=== PATIENT | female | born 1950 | race Caucasian/White ===

== ENCOUNTER 2025-03-01 21:43 | Inpatient (IN) | payer OTHER, SELFPAY ==
[2025-03-01] VITALS (19 sets, daily range): BP systolic 77–116; BP diastolic 53–79; PULSE 2–95; BMI 32.6
--- NOTE | 2025-03-01 17:02 | ED.GENMED ---
History of Present Illness
General
Chief Complaint: Breathing Problem
Source: patient
Time Seen by Provider: 03/01/25 16:45
History of Present Illness
History of Present Illness:
74-year-old female brought to the emergency room by ambulance for evaluation of significant shortness of breath. Patient has been experiencing progressively significant shortness of breath over the past several days. Patient has a known history of
congestive heart failure. She was recently hospitalized at [facility] [place]. Patient tells me that while at [place] her kidney function tests were abnormal necessitating a change in her diuretic dose. After being discharged her extremity
swelling and weight had been increasing and so she was placed back on a diuretic. Despite this she continues to feel worse. The patient was going to go back to [place] but evidently was so short of breath and had a period of unresponsiveness
prompting her transfer to us as a closer hospital. Patient was placed on a nonrebreather by paramedics which did increase her pulse ox from a room air pulse ox of 77% up to 100%. She feels subjectively better. She denies any chest pain.
Past History
Past History
ED Past Medical History: Arrthythmia (Atrial fibrillation), Cancer (Breast cancer and uterine cancer), HTN, Hypercholesterolemia and NIDDM
ED Past Surgical History: Cardiac (Aortic valve replacement July 2014) and Gynecological (Left mastectomy, total abdominal hysterectomy)
Social History
Tobacco: Non-smoker
Alcohol: None
Drug: None
Living: with family
Family History
Family History: Negative Diabetes, Hypertension, Early CAD, Asthma or Cancer
Phy Exam
Physical Exam
Physical Exam:
General: Awake, Alert, Oriented X3. Acute respiratory distress with air hunger and increased work of breathing on arrival.
Vitals: Mildly hypotensive
Head: Atraumatic
Eyes: Pupils equal, EOMI
Throat: Airway intact, no exudates dry mucosa
Neck: Trachea midline
Lungs: Decreased breath sounds right lower half, crackles throughout
Heart: Regular rate, 2/6 murmurs
Abd: Soft, Nontender, No pulsatile mass
Neuro: Grossly nonfocal
Skin: Warm, dry, no rash
Extremities: pulses equal b/l, 3+ edema
Scores
Heart Failure Risk
Heart Failure Risk Score: Yes
History of Stroke or TIA: No
History of intubation for respiratory distress: No
Heart rate on ED arrival >/= 110: Yes
SaO2 <90% on arrival on room air: Yes
HR >/=110 during 3min walk test (or too ill to perform test): Yes
ECG has acute ischemic changes: No
Urea >/=12mmol/L (BUN 33.6mg/dL): Yes
Serum CO2>/=35mmol/L: No
Troponin I or T elevated to AL Level (0.4mg/dL): No
NT-proBNP >/=5,000ng/L (5,000pg/ml): Yes
HF Risk Score: 5
Admission Status: VERY HIGH RISK 39.8% Consider admission to hospital
Sepsis
Sepsis Screening
Sepsis Assessment: Sepsis Ruled Out
Sepsis Screen
Sepsis Screen: Sepsis Ruled Out
Date: 03/02/25
Time: 00:03
Course
Orders/Labs/Results
Orders:
Orders
03/01/25 16:42
Electrocardiogram (*1) Urgent
Reason for Study: Shortness of Breath
EKG- Treatment ONCE
CR Chest Portable - 1 View Stat
Comment:
Reason For Exam: SOB
Reason Study Needs to be Portable: Unable to Transport
03/01/25 16:49
Complete Blood Count/With Diff Urgent
Comprehensive Metabolic Panel Urgent
03/01/25 16:56
Furosemide [Lasix] 40 mg IV ONCE ONE
03/01/25 17:17
D-Dimer Urgent
Magnesium Urgent
NT-proBNP Urgent
Troponin I Urgent
03/01/25 18:16
Venous Blood Gas Urgent
%Oxygen/Room Air: 15L NRB
03/01/25 19:23
LDH Urgent
PT/INR [Prothrombin Time] Urgent
PTT Urgent
03/01/25 20:11
Electrocardiogram (*1) Urgent
Reason for Study: Chest Pain
EKG- Treatment ONCE
03/01/25 20:14
Troponin I Urgent
03/01/25 20:15
Nitroglycerin Sublingual [Nitrostat (Sublingual)] 0.4 mg SL NOW STA
03/01/25 20:19
Type And Crossmatch [Type+Screen] Urgent
03/01/25 21:28
Admit/Transfer Patient As Directed
Co-Sign Provider:
Level of Care: Inpatient admission
Assign to:: IMU- Intermediate Care
Physician / Group: Quirino
Diagnosis: Aortic Stenosis, CHF, Hypoxemic Resp Failure
Reason for Hospitalization: Aortic Stenosis, CHF, Hypoxemic Resp Failure
Expected length of stay greater than two midnights?: Yes
ELOS- Estimated Length of Stay in days: 4
I certify the patient meets the requirements for IP care: Yes
03/01/25 21:29
PRN Pain Medication Management As Directed
May give lesser potent ordered pain med per pt: Yes
preference::
Protocol:: Medication orders for pain may be administered in a
manner that supports deferring to patient preference
when the pt is:
- Requesting an ordered lesser potent pain medication.
Least to most potent pain medications are defined
as: acetaminophen < NSAID < tramadol < opioids
(morphine, oxycodone, hydromorphone).
- Requesting a lesser dose of the same medication IF
ORDERED.
- Requesting a less intrusive route of administration
if both routes are prescribed by the provider (PO <
IV).
04/22/25 21:30
Code Status As Directed
Resuscitation Status: Do not resuscitate
Reached after discussion with pt or family/Healthcare POA: Yes
DNR Bracelet Application ONCE
03/01/25 21:45
ABO2 Urgent
BBK Wristband Number:
Associate notified that ABO2 has been ordered: [id number]
Date: 03/01/25
Time: 20:32
[facility] ID: [id number]
03/01/25 22:00
Flush (0.9% Sodium Chloride) [Flush (Nss)] See Dose Instructions IV PER PROTOCOL
03/01/25 22:35
Acetaminophen [Tylenol] 650 mg PO Q4HPRN PRN
Atorvastatin [Lipitor] 20 mg PO HS
Dextrose 50%-Water [Dextrose 50% Syringe] 12.5 grams IV [id number] PRN
Glucagon [GlucaGen] 1 mg IM PRN PRN
Metoprolol Xl [Toprol Xl] 50 mg PO HS
Morphine Sulfate 2 mg IV Q4HPRN PRN
Nitroglycerin Sublingual [Nitrostat (Sublingual)] 0.4 mg SL [id number] PRN
03/01/25 22:35
CARDIOLOGY CONSULT Routine
Consulting Provider: Paulino Man
Was physician already notified: Yes
Reason for consult: Aortic Stenosis, CHF, Hypoxemic Resp Failure
Case Management Consult ONCE
Case Management Consult: Discharge Planning
Activity As Directed
Activity Level: Ambulate
With Assistance
Bedside Glucose Monitoring As Directed
Frequency: AC&HS
Additional Instructions:: Change to q6h if pt on TPN, tube feeding or not eating
EKG with chest pain [ECG as needed] As Directed
ECG as needed for:: Chest Pain
Dempsey Catheter [Catheter- Indwelling] As Directed
Reason for insertion: Acute Retention
Discontinue Date/Time: 03/04/25 0600
I/O [Intake/ Output] As Directed
Frequency: Per unit guidelines
Pneumatic Compression Sleeves As Directed
Type: Knee high
Records Request [Obtain Records] As Directed
Dates of Information to be Released: Most Recent
Type of Information Requested: Entire Record
ECG/Cardiology Results
Obtain Records from: Joel Santiago
Vital Signs As Directed
Frequency: Per unit guidelines
Weight As Directed
Frequency: Daily
Oxygen Therapy [O2 Therapy] [RESP] Routine
Titrate/Wean O2 to maintain O2 sat greater than (%): 94
DX Deep Vein Thrombosis Video Routine
03/01/25 23:34
TSH Reflex To Free T4 Routine
Troponin I Q6H
03/02/25 04:35
Troponin I Q6H
03/02/25 06:00
EKG [Electrocardiogram (*1)] IN AM
Reason for Study: Chest Pain
1800 calorie (15 carb) Diabetic
At Your Request: Full Participation
Fluid Restriction: 1440 mL/day (48 oz)
Basic Metabolic Panel IN AM
Complete Blood Count/No Diff IN AM
Glycohemoglobin (HgbA1c) IN AM
LFT [Yrdvz-Rhdh-Uajvpid] IN AM
03/02/25 07:30
Insulin Aspart Corrective Mod [Novolog Flexpen-Moderate Resistance] See Protocol SC AC
03/02/25 08:00
Furosemide [Lasix] 40 mg IV BID AT 0800,1600
Pantoprazole [Protonix IV] 40 mg IV DAILY
Potassium Chloride [KCl] 10 meq PO BID
03/02/25 10:35
Troponin I Q6H
03/02/25 18:00
insulin glargine [Lantus Solostar U-100 Insulin] 18 unit SC QPM
Abnormal Lab Results
03/01/25 03/01/25 03/01/25
16:49 17:17 18:16
WBC 3.8 L 10^3/uL
(4.8-10.8)
RBC 2.12 L 10^6/uL
(4.20-5.40)
Hgb 8.8 L g/dL
(12.0-16.0)
Hct 27.8 L %
(37.0-47.0)
MCV 131.1 H fL
(81.0-99.0)
MCH 41.5 H pg
(27.0-31.0)
MCHC 31.7 L g/dL
(33.0-37.0)
RDW 21.7 H %
(11.5-14.5)
Plt Count 31 L 10^3/uL
(130-400)
Absolute Lymphs (auto) 0.3 L 10^3/uL
(1.2-3.4)
Immature Gran % 0.8 H %
(0-0.5)
Neutrophils % 81.4 H %
(42.2-75.2)
Lymphocytes % 8.5 L %
(20.5-51.1)
PT
D-Dimer 3.72 H ug/mlFEU
(0.00-0.50)
VBG pCO2 51 H mmHg
(35-48)
VBG HCO3 33.9 H mmol/L
(22-27)
Chloride 88 L mmol/L
(98-107)
BUN 72 H mg/dl
(7-17)
Creatinine 2.1 H mg/dL
(0.6-1.0)
Glucose 326 H mg/dl
(70-99)
Magnesium 2.4 H mg/dl
(1.6-2.3)
Total Bilirubin 3.7 H mg/dl
(0.2-1.3)
AST 112 H U/L
(14-36)
ALT 80 H U/L
(0-35)
Lactate Dehydrogenase
Troponin I 0.207 H* ng/ml
Total Protein 5.7 L g/dl
(6.3-8.2)
03/01/25 03/01/25
19:23 20:14
WBC
RBC
Hgb
Hct
MCV
MCH
MCHC
RDW
Plt Count
Absolute Lymphs (auto)
Immature Gran %
Neutrophils %
Lymphocytes %
PT 19.6 H Sec
(11.4-14.6)
D-Dimer
VBG pCO2
VBG HCO3
Chloride
BUN
Creatinine
Glucose
Magnesium
Total Bilirubin
AST
ALT
Lactate Dehydrogenase 824 H U/L
(120-246)
Troponin I 0.201 H* ng/ml
Total Protein
03/01/25 16:49
03/01/25 16:49
Vital Signs
Initial and Last Documented VS:
Initial Vital Signs
Pulse Resp BP Pulse Ox
100 40 77/53 94
03/01/25 16:43 03/01/25 16:43 03/01/25 16:43 03/01/25 16:43
Last Documented Vital Signs
Temp Pulse Resp BP Pulse Ox
97.6 F 94 23 108/60 97
03/01/25 16:51 03/01/25 23:37 03/01/25 23:30 03/01/25 23:37 03/01/25 23:30
MDM/Problems Addressed
Differential Diagnosis Includes:
chf, pneumonia, symptomatic anemia, acs, nstemi
MDM/Problems Addressed:
74-year-old female presents to the emergency room with significant shortness of breath. She arrived on a nonrebreather. Medics report prehospital room air pulse ox in the 70s. She had improvement in her oxygenation with a nonrebreather. Patient
taken off the nonrebreather and placed on mid flow nasal cannula oxygen at 6 L. She did seem to maintain her oxygen saturation at least initially with this. EKG shows what appears to be atrial fibrillation with a right bundle branch block. There
are no acute ischemic changes on the EKG. Exam appears consistent with heart failure and a pleural effusion on the right. 40 mg of furosemide administered. Patient had hypotension on arrival but her blood pressure increased to a more normal range
shortly after arrival. Patient typically receives her care at [place] and therefore we do not have any recent records to refer to. She is moderately anemic with a hemoglobin of 8.8. Her platelet count is low at 31. Renal function is abnormal
with a BUN of 72 and a creatinine to 2.1. D-dimer was ordered initially and is quite elevated at 3.72 but given her renal function the test is nonspecific and the overall presentation seems much more consistent with heart failure than an embolic
event and therefore no further workup for this was pursued. A VBG was obtained which shows very mild CO2 retention with a normal pH. Troponin is elevated at 0.2. I suspect this is nonischemic elevation given her heart failure. Patient was having
episodes of hypoxia which seem to coincide with her respiratory rate slowing from the 30s to the 20s or teens. BiPAP applied which did alleviate the episodes of hypoxia. Patient wants to require hospitalization for diuresis, further management.
*Radiology
Radiology exam reviewed: preliminary read by ED provider (Moderate right pleural effusion, small left lower effusion, pulmonary edema)
*Pulse Oximetry
Patient hypoxic: yes
*EKG
Interpreted by ED Provider?: Yes
Interpretation: abnormal
Heart Rate: 94
Rate: normal
Rhythm: sinus
Interval: first degree heart block
QRS Pattern: right bundle branch block
Ischemia: non-specific ST changes
*Court Reporter Interpretation
Rate: normal
Rhythm: sinus
*Critical Care Note
Total Time (30-74mins, 75-104mins- exclusive of procedures): 45 min
comment:
Critical care statement: A total of 45 minutes of critical care time was provided for this patient. This includes management of unstable vital signs, evaluation of the patient at bedside, reviewing the patient's pertinent medical records, discussion
with consultants, review of old EKGs and review of pertinent medical records. This time with separate from time utilized to perform the aforementioned documented procedures
Patient Management
Discussion with other providers: Hospitalist
ED Attending Note
-
Portions of this chart may have been created with voice recognition software.� Occasional wrong word or��sound alike� substitutions may have occurred due to the inherent limitations of voice recognition software.
Discharge Plan
Departure
Patient Disposition: Admit
Date of Disposition: 03/01/25
Time of Disposition: 19:09
Admit to: ICU
Presentation/result/management discussed w/ accepting MD/DO: Hospitalist
Condition: Serious
Discharge Problem:
Hypoxic respiratory failure, CHF (congestive heart failure), Pleural effusion, bilateral
Interventions
Interventions:
*Risk Screen - Suicide Last Done: 03/01/25 16:48
*General Assessment Last Done: 03/01/25 16:48
*Neglect/Abuse Screening Last Done: 03/01/25 16:48
*ED- Fall Risk Assessment Last Done: 03/01/25 16:48
*ED COVID-19 Vaccine History Last Done: 03/01/25 16:48
*Nursing Disposition Last Done: 03/01/25 22:43
ED- Cardiac Assessment Last Done: 03/01/25 17:00
ED- Pulmonary Assessment Last Done: 03/01/25 17:00
Discharge Date and Time
Discharge Date/Time: 03/01/25 22:44
[2025-03-01 17:08] LABS: % Immature Granulocytes 0.8 % (0-0.5); % Lymphocytes 8.5 % (20.5-51.1); % Monocytes 9.3 % (1.7-9.3); % Neutrophils 81.4 % (42.2-75.2); Absolute Lymphocytes 0.3 10^3/uL (1.2-3.4); Absolute Monocytes 0.4 10^3/uL (0.1-0.6); Absolute Neutrophils 3.1 10^3/uL (1.4-6.5); Hematocrit 27.8 % (37.0-47.0); Hemoglobin 8.8 g/dL (12.0-16.0); Mean Corp Hgb Conc. 31.7 g/dL (33.0-37.0); Mean Corpuscular Hgb 41.5 pg (27.0-31.0); Mean Corpuscular Volume 131.1 fL (81.0-99.0); Nucleated Red Blood Cells % 6.4 %; Red Blood Cell Count 2.12 10^6/uL (4.20-5.40); Red Cell Dist. Width 21.7 % (11.5-14.5); White Blood Cell Count 3.8 10^3/uL (4.8-10.8)
[2025-03-01 17:09] LABS: AST (SGOT) 112 U/L (14-36); Albumin 3.8 g/dl (3.5-5.0); Alkaline Phosphatase 108 U/L (38-126); Blood Urea Nitrogen 72 mg/dl (7-17); Calcium 9.2 mg/dl (8.4-10.2); Carbon Dioxide 30 mmol/L (22-30); Chloride 88 mmol/L (98-107); Estimated Creatinine Clearance 27 ml/min; Glucose 326 mg/dl (70-99); Potassium 4.5 mmol/L (3.5-5.1); Sodium 136 mmol/L (135-145); Total Bilirubin 3.7 mg/dl (0.2-1.3); Total Protein 5.7 g/dl (6.3-8.2); eGFR 23.97
[2025-03-01] MEDS: LASIX 40 MG IV (17:13)
[2025-03-01 17:36] LABS: ALT (SGPT) 80 U/L (0-35)
[2025-03-01 17:37] LABS: D-Dimer 3.72 ug/mlFEU (0.00-0.50); Magnesium 2.4 mg/dl (1.6-2.3)
[2025-03-01 17:51] LABS: Platelet Count 31 10^3/uL (130-400)
[2025-03-01 17:51] LABS: NT-proBNP 20400 pg/ml; Troponin I 0.207 ng/ml
[2025-03-01 17:55] LABS: Anisocytosis 2+; Macrocytosis 3+; Normal RBC Morphology No; Ovalocytes 1+; Polychromasia 1+
[2025-03-01 18:20] LABS: Venous Blood Gas B.E. 8.5 mmol/L (-4 to +4); Venous Blood Gas HCO3 33.9 mmol/L (22-27); Venous Blood Gas O2 Sat % 73.8 %; Venous Blood Gas pCO2 51 mmHg (35-48); Venous Blood Gas pH 7.43 (7.32-7.43); Venous Blood Gas pO2 45 mmHg (30-50)
[2025-03-01 19:40] LABS: INR 1.63; PT 19.6 Sec (11.4-14.6)
[2025-03-01 19:41] LABS: APTT 29.9 Sec (23.4-35.0)
[2025-03-01 19:46] LABS: LDH 824 U/L (120-246)
[2025-03-01 20:52] LABS: Troponin I 0.201 ng/ml
--- NOTE | 2025-03-01 21:35 | HPS.HSE ---
Family Physician
-
Family Physician: Zhao Warner MD
Chief Complaint
-
Chest pain / SOB
History of Present Illness
Patient is a 74y F with PMH significant for severe , CHF and breast cancer who presents to ED complaining of chest pain and SOB. History obtained from patient and at the bedside. Patient is followed by Dr. Isidro at [place] for CHF /
valvular heart disease. She reports gradually worsening SOB, edema, etc since October. She was ultimately hospitalized at [place] December - January 2025 for further evaluation. She underwent diuresis and there were plans for L / R heart cath to
evaluate for possible AV repair / replacement. Patient initially states that she left the hospital so she would not miss an appointment for a wheelchair measurement/ fitting (?).
Patient was seen by her VN today and noted to be more SOB. 911 was called and patient was brought to ED for further evaluation and treatment.
Patient reportedly was hypoxemic on arrival with verbally reported SpO2 in the 70s. She was immediately placed on BiPAP here.
Patient has complained of intermittent chest discomfort during her stay in the ED.
Hospitalist service asked to admit patient for further evaluation and treatment.
Upon initial discussion with patient / family - they made clear that they would prefer to be at [facility] where her usual physicians are, with reported plans for valve intervention in progress.
Spoke with Hospitalist at [facility] regarding possible transfer and they were agreeable. However, they also reviewed recent admission and noted that patient was deemed poor candidate for heart cath / intervention. She had been seen by Palliative Care at
[facility] and was DNR / DNI by their record. There were no immediate plans for any invasive procedures.
Discussed this information again with patient / family.
After further discussion, patient / changed code status here to DNR and decided against arranged transfer as - again - no invasive procedures were actually planned.
Medical History
Past Medical History
Past Medical History: Reports Other
Additional Past Medical History:
Severe Aortic Stenosis
Chronic HF
Paroxysmal Atrial Fibrillation
Hypertension
DM-II
Breast Cancer on Oral Chemotherapy
Past Surgical History: Reports Other
Additional Past Surgical History:
Left Mastectomy
Bio AVR (2013)
Watchman Device
TERESA
Social History
Tobacco: Non-smoker
Alcohol: Occasional
Drug: None
Personal:
Living: With Family
Family History
Family History: Not pertinent
Allergies / Home Medications
Allergies reflects when Allergies were last updated in [employer].
Home Medications with original date entered in [employer]
Allergy/Medication List:
Allergies
Allergy/AdvReac Type Severity Reaction Status Date / Time
No Known Allergies Allergy Unverified 08/19/14 14:07
Home Medications
albuterol sulfate 90 mcg/actuation aerosol inhaler 2 puff inhalation Q6H PRN SOB 03/01/25
atorvastatin 20 mg tablet 20 mg PO HS 03/01/25
glipizide 5 mg tablet, extended release 24 hr 10 mg PO DAILY 03/01/25
insulin glargine 100 unit/mL (3 mL) subcutaneous pen (Lantus Solostar U-100 Insulin) 14 unit SC QPM 03/01/25
letrozole 2.5 mg tablet 2.5 mg PO DAILY 03/01/25
metoprolol succinate 50 mg tablet,extended release 24 hr 50 mg PO HS 03/01/25
palbociclib 125 mg tablet (Ibrance) 125 mg PO DAILY 03/01/25
potassium chloride 10 mEq capsule,extended release 10 meq PO BID 03/01/25
torsemide 20 mg tablet 60 mg PO BID 03/01/25
tramadol 50 mg tablet 50 mg PO Q6H PRN Pain 03/01/25
Review of Systems
-
History Source: Patient
A 12 point ROS was completed and negative except as noted: Yes
Constitutional: Reports Fatigue; Denies Fever or Chills
EENT: Denies Sore Throat
Respiratory: Reports Trouble Breathing; Denies Cough or Hemoptysis
Cardiac: Reports Chest Pain; Denies Diaphoresis or Palpitations
Abdomen/GI: Reports Black Stools; Denies Abdominal Pain, Nausea, Vomiting or Diarrhea
: Denies Dysuria, Frequency or Flank Pain
Musculoskeletal: Reports Edema
Neurological: Denies Dizzy or Headache
Psych: Reports Depression and Anxiety
Physical Exam
Vital Signs
Vital Signs
Temp Pulse Resp BP Pulse Ox
97.6 F 89 23 99/67 100
03/01/25 16:51 03/01/25 21:00 03/01/25 21:00 03/01/25 21:00 03/01/25 21:00
Physical Exam
General: Other (Pale 74y F in mild - moderate distress due to dyspnea and chest discomfort.)
HEENT: Moist mucous membranes and Other (Neck supple.)
Respiratory: Other (Decreased at bases - bibasilar rales about 1/3 up.)
Cardiac: S1/S2, Irregular Rhythm and Murmur (IV / AYE)
GI: Soft, Non Tender, Non Distended and Normal Bowel Sounds
Musculoskeletal: No Clubbing, No Cyanosis and Other (3+ pitting edema b/l LEs)
Neuro: AO x 3
Psych: Anxious
Laboratory Results
-
03/01/25 16:49
03/01/25 16:49
Laboratory Results
PT 19.6 Sec (11.4-14.6) H 03/01/25 19:23
INR 1.63 03/01/25 19:23
APTT 29.9 Sec (23.4-35.0) 03/01/25 19:23
Total Bilirubin 3.7 mg/dl (0.2-1.3) H 03/01/25 16:49
AST 112 U/L (14-36) H 03/01/25 16:49
ALT 80 U/L (0-35) H 03/01/25 16:49
Alkaline Phosphatase 108 U/L (38-126) 03/01/25 16:49
Troponin I 0.201 ng/ml H* 03/01/25 20:14
Impression/Plan
-
A/P: Patient is a 74y F with PMH significant for CHF, and DM-II who presents to ED complaining of chest pain and SOB.
Acute on Chronic HF - Unknown Type
Severe Aortic Stenosis
Acute Hypoxemic Respiratory Failure secondary to the above
Right > Left Pleural Effusions
- Admit for further evaluation and treatment.
- Reviewed with physician at [facility] and patient reportedly not a candidate for valve intervention, cath, etc.
- IV diuresis and follow for clinical improvement.
- Supplemental O2 +/- BiPAP if needed (weaned off in the ED).
- Cardiology evaluation for additional recommendations.
- Follow I/Os, daily weights, etc.
- Send for recent records, Echo, etc from [place].
NSTEMI
- Patient with chest pain and dyspnea on presentation.
- EKG with RBBB - no recent baseline here (last in 2013).
- Initial troponin elevated at 0.207.
- Unable to initiation heparin infusion given significant thrombocytopenia.
- Continue beta-colton, statin, etc. Add ASA.
- Follow troponin to peak.
Pancytopenia
- Patient with pancytopenia - apparently also appreciated during recent [facility] stay and attributed to Ibrance at that time.
- Elevated D-Dimer, LDH, bili, etc.
- ? hemolysis due to paravalvular leak?
- Hold Ibrance acutely.
- Follow for improvement in cell counts.
- Monitor for any gross evidence of bleeding.
Paroxysmal Atrial Fibrillation
- Stable. Rates < 100 bpm mostly.
- Continue metoprolol with holding parameters.
- Not on OAC - s/p Watchman device.
JOHSUA v CKD
- SCr = 2.1. Unclear recent baseline.
- Suspect Cardiorenal due to CHF.
- Follow for changes with IV Lasix / diuresis.
Urinary Retention
- After Lasix administration in the ED, patient failed to urinate and noted to have > 500cc of urine in the bladder.
- Dempsey placed. Maintained for now.
- Consider TOV prior to discharge.
Breast Cancer
- Patient s/p initial mastectomy, chemo and XRT.
- Was previously on Arimidex - but currently on maintenance chemo with Ibrance.
- Holding oral agents acutely given pancytopenia as noted above.
DM-II
- Uncontrolled. Hyperglycemia likely due to acute illness.
- Continue basal insulin and adjust dose for improved control.
- Hold oral hypoglycemic agents acutely.
- Follow glucose and cover with SSI as needed.
- Update A1C.
DVT Prophylaxis: SCDs
Code Status: DNR after further discussion with patient / family. Would likely benefit from Palliative Care discussions. CM consulted.
[2025-03-01] MEDS: TOPROL XL 50 MG PO (23:37)
[2025-03-01] MEDS: LIPITOR 20 MG PO (23:37)
[2025-03-01 23:48] LABS: Glucose - Point of Care 275 mg/dl (70-99)
[2025-03-01] MEDS: LANTUS 0.18 UNITS SC (23:52)
[2025-03-02] VITALS (35 sets, daily range): BP systolic 86–122; BP diastolic 41–87; BMI 31.8
[2025-03-02 00:04] LABS: Lactic Acid 3.6 mmol/L (0.7-2.0)
[2025-03-02 00:07] LABS: Iron 86 ug/dl (37-170)
[2025-03-02 00:11] LABS: Troponin I 0.225 ng/ml
[2025-03-02 00:16] LABS: Percent Saturation 24 % (20-50); Total Iron Binding Capacity 347 ug/dl (265-497)
--- NOTE | 2025-03-02 00:31 | PTCARENOTE ---
Received patient AAOx3, following commands. at bedside, questions answered. 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 Afib 90s, BP stable 100s/50s, normothermic. Trace anasarca b/l upper
extremities, +2 b/l lower extremities. Weak palpable pedal pulses. On 6 liters oxymask saturating 100%. Lung sounds diminished throughout, crackles in the bases. Abdomen soft, round, obese, hypoactive bowel sounds. Dempsey in place draining yellow
urine for acute retention. Bruising throughout extremities. Right PIV placed. Labs sent, CHG bath done, repositioned. Call rojo within reach.
[2025-03-02] MEDS: ATIVAN 0.5 MG PO (04:01)
[2025-03-02 04:14] LABS: TSH Reflex To Free T4 3.44 uIU/ml (0.47-4.68)
[2025-03-02 04:27] LABS: Hematocrit 24.7 % (37.0-47.0); Hemoglobin 8.2 g/dL (12.0-16.0); Mean Corp Hgb Conc. 33.2 g/dL (33.0-37.0); Mean Corpuscular Hgb 42.5 pg (27.0-31.0); Platelet Count 41 10^3/uL (130-400); Red Blood Cell Count 1.93 10^6/uL (4.20-5.40); Red Cell Dist. Width 21.2 % (11.5-14.5); White Blood Cell Count 3.7 10^3/uL (4.8-10.8)
[2025-03-02 04:44] LABS: Lactic Acid 3.9 mmol/L (0.7-2.0)
[2025-03-02 04:49] LABS: Folate > 20.0 ng/ml (2.76-20); Vitamin B12 > 1000 pg/ml (239-931)
[2025-03-02 07:44] LABS: ALT (SGPT) 107 U/L (0-35); AST (SGOT) 182 U/L (14-36); Albumin 3.2 g/dl (3.5-5.0); Alkaline Phosphatase 99 U/L (38-126); Blood Urea Nitrogen 81 mg/dl (7-17); Calcium 9.4 mg/dl (8.4-10.2); Carbon Dioxide 32 mmol/L (22-30); Chloride 90 mmol/L (98-107); Direct Bilirubin 2.7 mg/dl (0.0-0.4); Estimated Creatinine Clearance 28 ml/min; Glucose 199 mg/dl (70-99); Potassium 4.3 mmol/L (3.5-5.1); Sodium 136 mmol/L (135-145); Total Protein 5.3 g/dl (6.3-8.2); eGFR 25.41
[2025-03-02 07:53] LABS: Glucose - Point of Care 206 mg/dl (70-99)
--- NOTE | 2025-03-02 08:20 | PTCARENOTE ---
Assumed care of pt at 0715 following shift report. Pt asleep, drowsy but arousable to name. Oriented to person, month/year. Thought she was at the library. Reorients easily to situation, conversation more appropriate as pt more awake. Physical
assessment completed as documented. Repositioned and comfort care provided. Pt remains on Oxymask w/ POx 96%- POx drops into mid 80's when pt removes O2 and is on RA. Call rojo w/in pt reach. Bed exit alarm in use. Safe environment maintained.
--- NOTE | 2025-03-02 08:32 | CON.CAR ---
Addendum entered and electronically signed by Migel Ruiz MD 03/02/25 11:34:
I saw and examined the patient.
The RN [facility]'s note was reviewed and I agree with the note.
Comment: 74 y/o female with tissue AVR 2013, AFIB (not on OAC, watchman in place), hypertension, CHF (preserved EF), DM, HLD, and hx breast and uterine cancer. She was recently in [facility] (full details unknown- records being requested from
[place], by primary team- however per OP cardiology record she was in [place] for acute hypoxemic respiratory failure 2/2 CHF, also with JOSHUA, pancytopenia, elevated trops- determined not to be ideal candidate for TAVR). She is here for SOB with
associated chest pressure.
Bioprosthetic AVR is severely/critically stenotic mean gradient of 61 mmHg. She is frail.
- IV diuresis
Original Note:
Consultation
Consultation Request
Date/Time Consultation Requested: 03/01/252234
Date/Time Consultation Performed: 03/02/25 0832
Requesting Provider: Dr. Win
Performing Provider: Malathi HUSAIN for Dr. Ruiz
Reason for Consultation: , CHF, respiratory failure
Medical History
-
Chief Complaint: SOB
History of Present Illness:
74 y/o female with tissue AVR 2013, AFIB (not on OAC, watchman in place), hypertension, CHF (preserved EF), DM, HLD, and hx breast and uterine cancer. She was recently in [facility] (full details unknown- records being requested from
[place], by primary team- however per OP cardiology record she was in [place] for acute hypoxemic respiratory failure 2/2 CHF, also with JOSHUA, pancytopenia, elevated trops- determined not to be ideal candidate for TAVR). She is here for SOB with
associated chest pressure. She tells me she was in [place] for 2 weeks in January. After she went home, she has been progressively feeling worse with breathing. OP diuretics have been uptitrated, but that was not helpful. Per chart, there was
discussion between attending here and hospitalist at [place] and patient was not felt to be appropriate candidate for invasive procedures. Records are being requested by primary team. Per EMS report, pulse ox was in 70's on RA. She required BiPap.
She was given diuretic. She is on O2 by face mask at the time of my assessment and feeling improved. She is a cardiology patient of Dr. Isidro and I have requested and received records and will place in chart. Otherwise, she has noted LE edema and
weight gain. She tells me that when she got home from [place], she was 190 lbs. Currently 202 lbs. She has no chest discomfort at present.
Past Medical History
Past Medical History: Arrhythmias, Cancer, CHF, HTN, Hypercholesterolemia, NIDDM and Valvular Disease
Social History
Tobacco: Non-Smoker
Living: With Family
Family History
Family History: Reviewed & Not Pertinent
Allergies / Home Medications
Allergy/AdvReac Type Severity Reaction Status Date / Time
No Known Allergies Allergy Unverified 08/19/14 14:07
�Medication �Instructions �Recorded �Confirmed �Type
albuterol sulfate 90 mcg/actuation 2 puff inhalation Q6H PRN SOB 03/01/25 03/01/25 History
aerosol inhaler
atorvastatin 20 mg tablet 20 mg PO HS High Cholesterol 03/01/25 03/01/25 History
glipizide 5 mg tablet, extended 10 mg PO DAILY Diabetes 03/01/25 03/01/25 History
release 24 hr
insulin glargine 100 unit/mL (3 14 unit SC QPM Diabetes 03/01/25 03/01/25 History
mL) subcutaneous pen (Lantus
Solostar U-100 Insulin)
letrozole 2.5 mg tablet 2.5 mg PO DAILY Cancer 03/01/25 03/01/25 History
metoprolol succinate 50 mg 50 mg PO HS Heart Disease/Condition 03/01/25 03/01/25 History
tablet,extended release 24 hr
palbociclib 125 mg tablet (Vickie) 125 mg PO DAILY Cancer 03/01/25 03/01/25 History
potassium chloride 10 mEq 10 meq PO BID Supplement 03/01/25 03/01/25 History
capsule,extended release
torsemide 20 mg tablet 60 mg PO BID Fluid 03/01/25 03/01/25 History
Retention/Swelling
tramadol 50 mg tablet 50 mg PO Q6H PRN Pain 03/01/25 03/01/25 History
Review of Systems
-
History Source: Patient
All other systems: Negative unless noted
Respiratory: Trouble Breathing
Cardiac: Chest Pain
Musculoskeletal: Edema
Physical Exam
Vital Signs
Temp Pulse Resp BP Pulse Ox
96.6 F L 94 16 109/75 100
03/02/25 07:00 03/02/25 06:15 03/02/25 06:15 03/02/25 06:00 03/02/25 06:15
Lab Results
03/02/25 04:07
03/02/25 05:45
Troponin I 0.220 ng/ml H* 03/02/25 04:07
Xin-W-Txevdpcdlql Pept 68314 pg/ml 03/01/25 17:17
Physical Exam
General: Well Developed and No Apparent Distress
HEENT: Normocephalic and Anicteric
Respiratory: Crackles (b/l bases)
Cardiac: Irregular Rhythm, Murmur and Peripheral Edema
Musculoskeletal: Edema
Neuro: Awake, Alert and Oriented
Psych: Calm
Impression / Plan
-
Acute hypoxemia respiratory failure:
-this condition is threat to life
-currently on supplemental O2
-CHF management as below
Nvcxx-sh-xanarcs HFpEF:
-echo 01/09/25: normal EF, mild concentric LVH, moderate to severe MR, moderate TR, mild pulmonary hypertension, bio AVR peak and mean gradients 107/61 mmHg
-agree with IV diuresis, which requires intensive monitoring
AFIB, persistent:
-continue metoprolol, follow telemetry- rate is controlled
-watchman is in place per records, so not on OAC
Abnormal troponin:
-0.225 peak
-suspect acute, non-ischemic myocardial injury in setting of hypoxemia
Bio AVR:
-echo as noted with bio AVR peak and mean gradients 107/61 mmHg
-OP notes reviewed from Dr. Isidro and per his note 'currently very frail to evaluate with RHC/LHC with a view to valve in valve TAVR'
Pancytopenia:
-per primary
Renal dysfunction:
-unknown baseline, records being requested
-monitor with diuresis
RBBB:
-chronic per OP chart
Data Reviewed
-
EKG: Tracing Personally Visualized and interpreted (Probable AT with 2:1 conduction RBBB (vs AFIB))
Radiology: Report Reviewed by me (CXR: Small to moderate bilateral pleural effusions with associated atelectasis and/or pneumonia, right worse than left.)
Labs: Labs Reviewed by me
Old Records: Requested (Dr. Isidro)
--- NOTE | 2025-03-02 08:35 | W.PN.HOSP.TC ---
Today's Communication/Plan
-
Continue diuresis
Obtain records from [facility]
Monitor blood work
Follow-up troponin
Repeat echocardiogram
Wean of oxygen as possible
Maintain IMU level for today
Assessment / Plan
Assessment / Plan
Acute on Chronic HF - Unknown Type
Severe Aortic Stenosis
Acute Hypoxemic Respiratory Failure secondary to the above
Right > Left Pleural Effusions
- Admit for further evaluation and treatment.
- Reviewed with physician at [facility] and patient reportedly not a candidate for valve intervention, cath, etc.
- Elevated ProBNP 20k, CXR reviewed and no significant pulm edema,
- IV diuresis and follow for clinical improvement.
- will require repeat TTE
- Supplemental O2 +/- BiPAP if needed (weaned off in the ED).
- Cardiology evaluation for additional recommendations.
- Follow I/Os, daily weights, etc.
- Send for recent records, Echo, etc from [place].
Troponin elevation
r/o NSTEMI
- Patient with chest pain and dyspnea on presentation.
- EKG with RBBB - no recent baseline here (last in 2013).
- Initial troponin elevated at 0.207 > 0.201 > 0.225 > 0.22
- Unable to initiation heparin infusion given significant thrombocytopenia.
- Continue beta-colton, statin, etc. Add ASA.
- Follow troponin to peak.
Pancytopenia
Mixed hyperbilirubinemia
Elevated LDH/D-dimer
- Patient with pancytopenia - apparently also appreciated during recent [facility] stay and attributed to Ibrance at that time.
- Elevated D-Dimer, LDH, bili, etc. suggestive of intravascular hemolysis from sev AV stenosis vs potential side effect of Ibrance or mixed from bot this etiology.
- Hold Ibrance acutely.
- Will consider hematology evaluation once blood work from [facility] sent in and trends reviewed.
Paroxysmal Atrial Fibrillation
- Stable. Rates < 100 bpm mostly.
- Continue metoprolol with holding parameters.
- Not on OAC - s/p Watchman device.
JOSHUA v CKD
- SCr = 2.1. Unclear recent baseline.
- Suspect Cardiorenal due to CHF.
- Follow for changes with IV Lasix / diuresis.
Urinary Retention
- After Lasix administration in the ED, patient failed to urinate and noted to have > 500cc of urine in the bladder.
- Dempsey placed, monitor urine output.
- Consider TOV prior to discharge.
Breast Cancer
- Patient s/p initial mastectomy, chemo and XRT.
- Was previously on Arimidex - but currently on maintenance chemo with Ibrance.
- Holding oral agents acutely given pancytopenia as noted above.
DM-II
- Uncontrolled. Hyperglycemia likely due to acute illness.
- Continue basal insulin and adjust dose for improved control.
- Hold oral hypoglycemic agents acutely.
- Follow glucose and cover with SSI as needed.
- Update A1C.
DVT Prophylaxis: SCDs
Code Status: DNR after further discussion with patient / family. Would likely benefit from Palliative Care discussions. CM consulted.
Total time spent : 55 mins
case discussed with cardio CLINICAL APPEALS SPECIALIST
Anticipated Discharge: > 48 hours
Subjective/Interval History
-
Date of Service: March 02, 2025
Patient resting comfortably in bed
On oxygen through Ventimask
Denies of having any dyspnea
Not voicing any complaints
Objective Data
-
Labs:
Laboratory Results
03/02/25 03/02/25
04:07 05:45
WBC 3.7 L
Hgb 8.2 L
Hct 24.7 L
Plt Count 41 L D
Sodium Cancelled 136
Potassium Cancelled 4.3
Chloride Cancelled 90 L
Carbon Dioxide Cancelled 32 H
BUN Cancelled 81 H
Creatinine Cancelled 2.0 H
Glucose Cancelled 199 H
Calcium Cancelled 9.4
Total Bilirubin Cancelled 4.0 H
AST Cancelled 182 H
ALT Cancelled 107 H
Alkaline Phosphatase Cancelled 99
Vital Signs:
Vital Signs
Temp Pulse Resp BP Pulse Ox
96.6 F L 94 16 109/75 100
03/02/25 07:00 03/02/25 06:15 03/02/25 06:15 03/02/25 06:00 03/02/25 06:15
I&O
03/01/25 03/02/25 03/03/25
06:59 06:59 06:59
Output Total 875 / 875
Balance -875 / -875
Review of Systems
-
Respiratory: Denies Cough or Trouble Breathing
Cardiac: Reports No Symptoms
Abdomen/GI: Reports No Symptoms
Physical Exam
-
General: No Apparent Distress and Comfortable
HEENT: Oxygen
Respiratory: Crackles
Cardiac: Regular Rhythm, S1/S2 and Murmur (aortic regug murmur); Negative Rub
GI: Soft, Nontender and Nondistended
Musculoskeletal: Edema, Right Lower Extrem and Edema, Left Lower Extrem
Neuro: Awake, Alert, Oriented, No Motor Deficits and Nonfocal/Grossly Intact
Psych: Calm
[2025-03-02] MEDS: NSS (PRESERVATIVE FREE) 10 ML IV (09:07)
[2025-03-02] MEDS: LOW STRENGTH ASPIRIN 81 MG PO (09:07)
[2025-03-02] MEDS: KCL 10 MEQ PO ×2 (09:07→19:39)
[2025-03-02] MEDS: TYLENOL 650 MG PO (09:07)
[2025-03-02] MEDS: NOVOLOG FLEXPEN-MODERATE RESISTANCE 3 UNITS SC (09:08)
[2025-03-02] MEDS: PROTONIX IV 40 MG IV (09:08)
[2025-03-02] MEDS: LASIX 40 MG IV ×2 (09:08→16:39)
[2025-03-02 09:13] LABS: Glycohemoglobin (HgbA1c) 6.9 % (4.0-5.6)
[2025-03-02 11:40] LABS: LDH 963 U/L (120-246)
[2025-03-02 11:47] LABS: Glucose - Point of Care 166 mg/dl (70-99)
[2025-03-02] MEDS: NOVOLOG FLEXPEN-MODERATE RESISTANCE 1 UNITS SC ×2 (11:48→18:12)
--- NOTE | 2025-03-02 12:00 | PTCARENOTE ---
Pt continues to rest quietly. here to visit and encouraging pt to eat. Pt noted to have some difficulty w/ swallowing bread/roast beef that was ordered. Frequent harsh coughing noted after a few bites. Pox unchanged. No acute resp. distress
noted. TT to Dr Hall and order for Speech Therapy consult received. Pt tolerating thin liquids w/o difficulty. No additional changes from previous assessment findings.
--- NOTE | 2025-03-02 12:36 | CM ---
CM following re: discharge planning.
Reviewed pt's chart, met with pt and pt's at bedside.
Pt is a 74 year old female, admitted with primary dx of Acute on Chronic HF. PMH includes: severe , CHF and breast cancer.
Pt reports she lives with 2SH, 2 steps to enter, has 2 supportive children. Pt reports she ambulates with a walker and a cane, current with [facility]. No SNF history. Pt went to tears describing her health condition and she stated she does
not know what she will do when she is ready for discharge. Emotional support offered and provided.
PCP: Zhao butterfield
Pharmacy: [facility]
D/C plan: uncertain at this time and will depend on pt's progress.
CM will follow with discharge plan updates as hospitalization progresses
--- NOTE | 2025-03-02 15:40 | PTOTSP ---
Speech Language Pathology
Pt seen for clinical bedside swallow evaluation. Hoarse vocal quality noted, and pt had participated in outpatient voice therapy through [facility] September 2024-December 2024. Was not seen by [facility] during recent [facility] admission. Coughing episode
noted by RN with lunch this date. Pt stated she coughs/'chokes' frequently with solid food. P.O. trials of puree, regular solids, and thin liquids provided. No oral difficulties noted. Facial grimacing noted with all P.O. trials. Pt endorsed
pain L side of throat, which she stated she has had for some time. She also endorsed globus sensation with solids, which did not fully clear with liquid wash.
Recommend:
(1) Downgrade to IDDSI Level 4 (Puree) and Thin Liquids
(2) Aspiration precautions: sit upright, slow rate, single sips of liquids, alternate solids and liquids, effortful swallow
(3) Meds as tolerated
(4) Flexible Endoscopic Evaluation of Swallowing (FEES) 03/03 to further assess pharyngeal phase of swallow function, including airway protection
(5) [employer] to continue to follow
[2025-03-02] MEDS: ProAmatine 5 MG PO (16:39)
--- NOTE | 2025-03-02 16:50 | PTCARENOTE ---
Pt's gone home for part of afternoon, now returned to bedside. updated on diet modification recommended by Speech Therapy. TT to Dr Hall w/ update on pt's SBP in 's. Order for Midodrine received and administered per JAN. Pt
continues to rest quietly. O2 currently 4l/min via Oxymask- alternates w/ use of NC @ 4l/min. POx 96% at present. Comfort care/repositioning provided q2hr or more frequently
[2025-03-02 17:09] LABS: Glucose - Point of Care 161 mg/dl (70-99)
[2025-03-02] MEDS: LANTUS 0.18 UNITS SC (18:30)
--- NOTE | 2025-03-02 21:12 | PTCARENOTE ---
Pt received start of shift, HR afib w/ BBB. 4L NC. Pt very anxious, tachypneic and shallow breathing. Desat to 70s/80s. Oxymask placed back on pt, 4L. Deep breathing exercises. 96-100%. Dempsey draining yellow urine. Pt occasionally disoriented to
place/time. Call rojo within reach.
[2025-03-02] MEDS: LIPITOR 20 MG PO (23:09)
[2025-03-02 23:24] LABS: Glucose - Point of Care 180 mg/dl (70-99)
[2025-03-03] VITALS (55 sets, daily range): BP systolic 51–111; BP diastolic 21–94; PULSE 2–115; BMI 32.0
--- NOTE | 2025-03-03 01:38 | PTCARENOTE ---
Pt intermittently extremely anxious, tachypneic. SpO2 remains 96% and up during these episodes with 4L oxymask. Therapeutic speech utilized and effectively resolved these episodes. Dempsey continuing to drain yellow urine. No further change in
assessment.
[2025-03-03 04:56] LABS: Blood Urea Nitrogen 99 mg/dl (7-17); Calcium 9.1 mg/dl (8.4-10.2); Carbon Dioxide 30 mmol/L (22-30); Chloride 91 mmol/L (98-107); Estimated Creatinine Clearance 24 ml/min; Glucose 115 mg/dl (70-99); Potassium 5.3 mmol/L (3.5-5.1); Sodium 136 mmol/L (135-145); eGFR 21.49
[2025-03-03 05:04] LABS: Hematocrit 25.7 % (37.0-47.0); Hemoglobin 8.4 g/dL (12.0-16.0); Mean Corp Hgb Conc. 32.7 g/dL (33.0-37.0); Mean Corpuscular Hgb 40.6 pg (27.0-31.0); Mean Corpuscular Volume 124.2 fL (81.0-99.0); Platelet Count 24 10^3/uL (130-400); Red Blood Cell Count 2.07 10^6/uL (4.20-5.40)
[2025-03-03] MEDS: MORPHINE SULFATE 2 MG IV ×2 (05:16→11:13)
--- NOTE | 2025-03-03 07:15 | PTCARENOTE ---
Patient confused and pulling off oxygen. Pulse ox down to 76%. Tachypneic. 3L Oxymask reapplied. Hypotensive. BP 80/53. HR 100-110's, Afib. Per trade specialist RN, EKG changes observed on tele monitor. EKG obtained. Hospitalist notified.
[2025-03-03 07:36] LABS: Glucose - Point of Care 67 mg/dl (70-99)
[2025-03-03] MEDS: NOVOLOG FLEXPEN-MODERATE RESISTANCE SC ×2 (07:36→11:29)
[2025-03-03] MEDS: DEXTROSE 50% SYRINGE 12.5 GRAMS IV ×2 (07:41→10:14)
--- NOTE | 2025-03-03 07:48 | PTCARENOTE ---
Patient's blood sugar 67. 1/2 amp D50 administered as ordered.
[2025-03-03 08:06] LABS: Glucose - Point of Care 137 mg/dl (70-99)
[2025-03-03] MEDS: PROTONIX IV 40 MG IV (08:11)
[2025-03-03] MEDS: NSS (PRESERVATIVE FREE) 10 ML IV (08:11)
[2025-03-03] MEDS: KCL PO (08:17)
--- NOTE | 2025-03-03 08:22 | W.PN.CD ---
Addendum entered and electronically signed by Migel Ruiz MD 03/03/25 10:47:
Patient hypotensive increased oxygen requirement; started on levophed, worsening lactic acidosis; went to bedside and discussed with hris manager patient made comfort care given overall critical illness with poor chance of recovery
Original Note:
Today's Communication / Plan
-
increase lasix to 80mg IV bid
trend Cr, tele
Impression / Plan
-
Acute hypoxemia respiratory failure:
-this condition is threat to life
-with pleural effusions and acute HF
Pfhin-iq-osvxmtv HFpEF: severe, requiring hospitalization and close monitoring of labs, tele
-echo 01/09/25: normal EF, mild concentric LVH, moderate to severe MR, moderate TR, mild pulmonary hypertension, bio AVR peak and mean gradients 107/61 mmHg (severe stenosis of bioprosthetic valve)
-high risk situation with possible cardiorenal syndrome, to consider RHC if CR worsens and in line with goals of care
-increase lasix to 80mg IV bid
AFIB, persistent:
-metoprolol on hold for hypotension
-watchman is in place per records, so not on OAC
Abnormal troponin:
-0.225 peak
- acute, non-ischemic myocardial injury in setting of HF
Bio AVR: severe stenosis of bioprosthetic valve
-echo as noted with bio AVR peak and mean gradients 107/61 mmHg
-OP notes reviewed from Dr. Isidro and per his note 'currently very frail to evaluate with RHC/LHC with a view to valve in valve TAVR'
Moderate/severe MR
-diuresis
Pancytopenia:
-per primary
-attributed to Ibrance previously
Renal dysfunction:
-unknown baseline, records being requested
-monitor with diuresis
RBBB:
-chronic per OP chart
Physical Exam
Vital Signs/Labs
Vital Signs
Temp Pulse Resp BP Pulse Ox
97.5 F 103 34 91/73 97
03/03/25 04:00 03/03/25 08:15 03/03/25 08:15 03/03/25 08:15 03/03/25 08:15
03/02/25 03/03/25 03/04/25
06:59 06:59 06:59
Actual Weight 91.943 kg 92.59 kg
03/03/25 04:04
03/03/25 04:04
PT 19.6 Sec (11.4-14.6) H 03/01/25 19:23
INR 1.63 03/01/25 19:23
APTT 29.9 Sec (23.4-35.0) 03/01/25 19:23
Magnesium 2.4 mg/dl (1.6-2.3) H 03/01/25 17:17
03/01/25
17:17
Njt-B-Chfxumspyxu Pept
LAB Results
03/01/25 03/01/25 03/01/25
17:17 20:14 23:34
Troponin I 0.207 H* 0.201 H* 0.225 H*
03/02/25 03/02/25
04:07 10:35
Troponin I 0.220 H* Cancelled
Physical Exam
Cardiovascular: Rhythm/rate is irregular, Pedal edema present, JVD present and Systolic murmur present
Respiratory: Labored respirations and Crackles Present
Neuro/Psych: Oriented
Data Reviewed
-
Date of Service: March 03, 2025
EKG: Other (tele: Afib 80s)
Labs: Labs Reviewed by me
Old Records: Reviewed
[2025-03-03] MEDS: LASIX IV (08:29)
[2025-03-03 08:55] LABS: Glucose - Point of Care 92 mg/dl (70-99)
[2025-03-03] MEDS: LOW STRENGTH ASPIRIN PO (09:11)
[2025-03-03 09:29] LABS: Venous Blood Gas O2 Sat % 89.5 %; Venous Blood Gas pCO2 57 mmHg (35-48); Venous Blood Gas pO2 61 mmHg (30-50)
[2025-03-03] MEDS: LEVOPHED 250 IV (09:44)
[2025-03-03 10:03] LABS: Glucose - Point of Care 72 mg/dl (70-99)
[2025-03-03 10:05] LABS: Troponin I 0.408 ng/ml
[2025-03-03 10:23] LABS: Lactic Acid 8.3 mmol/L (0.7-2.0)
--- NOTE | 2025-03-03 10:30 | PTCARENOTE ---
Around 0845, patient minimally responsive. Pale. Skin cool and clammy. Lung sounds crackles throughout left lung, diminished throughout right lung. Tachypneic; RR in the 30's. Pulse ox 95-96% on 3L Oxymask. Blood pressure down to 60-70/40-50's. HR
100's, afib with BBB. HOB lowered. Hospitalist notified. Textile Stylist notified and at bedside. VBG, Troponin and Lactic sent. Patient placed on BiPAP 10/5 4L by RT. Levophed gtt initiated at 0937. Titrated up to 14 mcg/min for MAP >65. Repeat blood
sugar 72. Additional 1/2 amp D50 administered. at bedside. Emotional support provided. Troponin level- 0.408, Lactic level- 8.3. Textile Stylist notified.
--- NOTE | 2025-03-03 10:41 | PTCARENOTE ---
Patient transitioned to comfort care.
--- NOTE | 2025-03-03 11:01 | CON.INTV ---
Consultation
Consultation Request
Date/Time Consultation Requested: 03/03/2025
Date/Time Consultation Performed: 03/03/2025
Requesting Provider: Rex Potter
Performing Provider: Dalton Feliciano
Reason for Consultation: Shock, respiratory distress
Medical History
-
Chief Complaint: Hypotension, shortness of breath
History of Present Illness:
Patient is a 74-year-old female with known history of stenotic bioprosthetic valve with severe/critical aortic stenosis, congestive heart failure, history of breast cancer who presented to [facility] emergency room with chest pain and shortness of
breath. Patient had a recent admission at [facility] for CHF exacerbation which was managed with diuresis with plan for outpatient follow-up. Patient developed worsening shortness of breath again and presented to emergency room here and was admitted
to the hospitalist service. Cardiology service evaluated the patient and patient was kept on diuresis. She initially required BiPAP on admission which was subsequently weaned off to nasal cannula.
This morning, patient was noted to be hypotensive with increasing work of breathing. In view of developing shock and respiratory failure, infectious disease physician service was consulted for further input. Patient was examined emergently right away and was noted
to be an extremis with respiratory rate around 40 as well as hypotension.
Past Medical History
Past Medical History: Reports Other
Additional Past Medical History:
Severe Aortic Stenosis
Chronic HF
Paroxysmal Atrial Fibrillation
Hypertension
DM-II
Breast Cancer on Oral Chemotherapy
Past Surgical History: Reports Other
Additional Past Surgical History:
Left Mastectomy
Bio AVR (2013)
Watchman Device
TERESA
Social History
Tobacco: Non-smoker
Alcohol: Occasional
Drug: None
Personal:
Living: With Family
Family History
Family History: Not pertinent
Allergies / Home Medications
Allergies / Home Medications
Allergies
Allergy/AdvReac Type Severity Reaction Status Date / Time
No Known Allergies Allergy Unverified 10/10/14 14:07
Home Medications
�Medication �Instructions �Recorded �Confirmed �Last Taken �Type
albuterol sulfate 90 mcg/actuation 2 puff inhalation Q6H PRN SOB 03/01/25 03/01/25 Unknown History
aerosol inhaler
atorvastatin 20 mg tablet 20 mg PO HS High Cholesterol 03/01/25 03/01/25 Unknown History
glipizide 5 mg tablet, extended 10 mg PO DAILY Diabetes 03/01/25 03/01/25 Unknown History
release 24 hr
insulin glargine 100 unit/mL (3 14 unit SC QPM Diabetes 03/01/25 03/01/25 Unknown History
mL) subcutaneous pen (Lantus
Solostar U-100 Insulin)
letrozole 2.5 mg tablet 2.5 mg PO DAILY Cancer 03/01/25 03/01/25 Unknown History
metoprolol succinate 50 mg 50 mg PO HS Heart Disease/Condition 03/01/25 03/01/25 Unknown History
tablet,extended release 24 hr
palbociclib 125 mg tablet (Ibrance) 125 mg PO DAILY Cancer 03/01/25 03/01/25 Unknown History
potassium chloride 10 mEq 10 meq PO BID Supplement 03/01/25 03/01/25 Unknown History
capsule,extended release
torsemide 20 mg tablet 60 mg PO BID Fluid 03/01/25 03/01/25 Unknown History
Retention/Swelling
tramadol 50 mg tablet 50 mg PO Q6H PRN Pain 03/01/25 03/01/25 Unknown History
Review of Systems
-
Unable to Obtain full review of systems at this time due to: Other (Patient in respiratory distress with increased work of breathing, unable to participate in review of system. Patient reported chest pressure however during my evaluation.)
Vitals / Labs / Diagnostic Testing
Vital Signs
Temp Pulse Resp BP Pulse Ox
98.5 F 113 22 103/76 96
03/03/25 08:00 03/03/25 10:40 03/03/25 10:40 03/03/25 10:40 03/03/25 10:10
Lab Data
03/03/25 04:04
03/03/25 04:04
Diagnostic Testing:
Physical Exam
-
HEENT: Normocephalic
Cardiovascular: Other (Loud pansystolic murmur)
Respiratory: Rales, Rhonchi and Accessory Resp Muscle Use
GI: Soft
Neurology: Awake
Skin: Other (Skin is cold, clammy, distal toes of feet appear cyanotic)
General: Respiratory Distress
Assessment
-
#1. Acute respiratory distress with hypoxic respiratory failure. Patient was emergently evaluated at bedside in view of hypotension and respiratory distress. This is in the setting of pulmonary edema, hypotension with cardiogenic shock with
critical aortic stenosis.
- Patient noted to be breathing at a respiratory rate of about 40, in extremis during my evaluation. Confirmed CODE STATUS of DNR/DNI with at bedside
- Started patient on BiPAP stat with improved work of breathing
- Chest x-ray suggestive of pulmonary edema and pleural effusion consistent with underlying cardiogenic shock
#2. Cardiogenic shock with critical aortic stenosis. Patient was started on Levophed, quickly went up to Levophed @ 14 to maintain MAP above 65
- Patient has known history of stenotic bioprosthetic aortic valve and has had recent hospitalization at [facility]. Reportedly patient is not a candidate for surgical interventions. I discussed with the cardiology team locally as well.
#3. Worsening lactic acidosis.
- Stat VBG showed a pH of 7.3, lactate noted to be above 8 compared to a lactate of 3 from 2 days ago.
- I met with patient's at bedside again and we went over the unfortunate situation of worsening respiratory failure and worsening shock with increasing acidosis. We briefly talked about intubation and mechanical ventilation versus DNR/DNI
with ongoing medical management versus more comfort focused care. Patient's iterated that he had been told at [facility] also that patient is unlikely to be a candidate for additional surgical interventions and comfort focused care might not
be unreasonable.
- Patient at this point is unable to participate in these discussions in view of respiratory failure, shock and worsening acidosis with encephalopathy.
- After discussion with patient's spouse at bedside, patient was transitioned to comfort focused care. Will add morphine as needed for air hunger as patient had significant respiratory distress prior to being placed on BiPAP therapy.
Critical Care time 69 mins -- The patient is admitted for acute critical illness for the treatment of vital organ failure and/or prevention of further life-threatening conditions. Total care includes time spent in review of history, physical exam,
medications, hemodynamic/ventilator parameters, laboratory data, imaging and discussion with house staff, pharmacy, respiratory therapy, middle school guidance counselor, and nursing.
--- NOTE | 2025-03-03 11:09 | W.PN.PAL2 ---
Today's Communication
-
Arrived for palliative care visit. informed by RN that family have opted for comfort care. please cancel palliative care consult as goals clear. reconsult if needed in the future.
Objective Data
-
Objective Data:
Vital Signs
Temp Pulse Resp BP Pulse Ox
98.5 F 115 40 72/51 95
03/03/25 08:00 03/03/25 11:03 03/03/25 11:03 03/03/25 11:03 03/03/25 11:00
Laboratory Results
03/03/25 04:04
03/03/25 04:04
PT 19.6 Sec (11.4-14.6) H 03/01/25 19:23
INR 1.63 03/01/25 19:23
APTT 29.9 Sec (23.4-35.0) 03/01/25 19:23
Hemoglobin A1c 6.9 % (4.0-5.6) H 03/02/25 04:07
Total Protein 5.3 g/dl (6.3-8.2) L 03/02/25 05:45
Albumin 3.2 g/dl (3.5-5.0) L 03/02/25 05:45
Palliative Performance Scale
Palliative Performance Scale:
PPS Level Ambulation Activity & Evidence of Disease Self Care Intake Conscious Level
100% Full Normal Activity & Work; Full Intake Full
No Evidence of Disease
90% Full Normal Activity & Work; Full Normal Full
Some Evidence of Disease
80% Full Normal Activity with Effort Full Normal or Full
Some Evidence of Disease Reduced
70% Reduced Unable Normal Job/Work Full Normal or Full
Significant Disease Reduced
60% Reduced Unable Hobby/Housework Occasional Normal or Full or Confusion
Significant Disease Assistance Reduced
50% Mainly Sit/Lie Unable to do Any Work Considerable Normal or Full or Confusion
Extensive Disease Assistance Req'd Reduced
40% Mainly in Bed Unable to do Most Activity Mainly Assistance Normal or Full or Drowsy;
Extensive Disease Reduced +/- Confusion
30% Totally Bed Unable to do Any Activity Total Care Normal or Full or Drowsy;
Bound Extensive Disease Reduced +/- Confusion
20% Totally Bed Bound Unable to do Any Activity Total Care Minimal to Full or Drowsy;
Extensive Disease Sips +/- Confusion
10% Totally Bed Bound Unable to do Any Activity Total Care Mouth Care Drowsy or Coma;
Extensive Disease Only +/- Confusion
0%
PPS Score Level:
--- NOTE | 2025-03-03 11:19 | PTCARENOTE ---
BiPAP and Levophed discontinued. Morphine administered for dyspnea. Repositioned for comfort.
--- NOTE | 2025-03-03 12:25 | W.PN.DEATH ---
Pronouncement of
-
Called to see patient to pronounce.
No spontaneous heart tones or respirations noted.
Patient not responsive to verbal stimuli.
Patient is pronounced .
Time of : 11:46
Date of : 03/03/25
Cause of : Acute hypoxic respiratory failure
Family Notified: Yes
--- NOTE | 2025-03-03 12:48 | W.DCSUMMARY ---
Discharge Summary
Discharge Data
Date of Admission: 03/01/25
Date of Discharge: 03/03/25
-
Pending Results: No
Hospital Course
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
breath.
Patient was hypotensive during hospitalization and increased work of breathing, discussed with at bedside, patient is DNI/DNR.
Consulted ICU for pressors, also palliative team.
After discussion with ICU patient converted to comfort measures only.
Patient pronounced on 11:45 AM
Discharge Plan
-
Patient Disposition:
Date/Time
Date/Time: 03/03/25 11:46
Discharge Date and Time
Print Language: [place]
--- NOTE | 2025-03-03 13:35 | PTCARENOTE ---
Patient belongings sent with . Postmortem care performed. GOL notified.
--- NOTE | 2025-03-03 13:59 | CM ---
Pt today. at bedside.
Emotional support offered and provided.
--- NOTE | 2025-03-04 08:33 | PN.CDI ---
CDI
- -
CDI:
Physician Documentation Request
Admit Date: 03/01/25 21:43
Dear Doctor Rafael,
Please review the following and provide your response in the progress notes.
Clinical Indicators:
Pt admitted with Acte on Chronic HFpEF/Acute Hypoxic Respiratory Failure /Severe Aortic Stenosis
Otorhinolaryngologist consult, ' - Patient at this point is unable to participate in these discussions in view of respiratory failure, shock and worsening acidosis with encephalopathy.'
Pt care note 03/02 @ 2112,' Pt very anxious, tachypneic and shallow breathing. Desat to 70s/80s. Oxymask placed back on pt, 4L. Deep breathing exercises. 96-100%.... Pt occasionally disoriented to place/time....'
Pt care note 03/03 @0715,' Patient confused and pulling off oxygen. Pulse ox down to 76%. Tachypneic....'
Pt care note 03/03 @ 1030,' Around 0845, patient minimally responsive. Pale. Skin cool and clammy. Lung sounds crackles throughout left lung...'
Based on the above, could you clarify in the Progress Notes and Discharge Summary which, if any of the following, is the most likely etiology of the confusion/altered mental status/Type of Encephalopathy:
Metabolic Encephalopathy
Toxic metabolic Encephalopathy
Other ( please specify)
Use of terms such as suspected, likely, concern for, or probable (associated with a specific diagnosis that is being evaluated, monitored, or treated as if it exists) are acceptable and can be coded in the inpatient setting, when documented at the
time of discharge.
Thank you,
Kaye Iglesias RN
CDI Specialist
[place] [facility]
Please use your independent medical judgment in providing your response.
--- NOTE | 2025-03-04 08:42 | PN.CDI ---
CDI
- -
CDI:
Physician Documentation Request
Admit Date: 03/01/25 21:43
Dear Doctor Rafael,
Please review the following and provide your response in the progress notes.
Clinical Indicators:
Pt admitted with Acte on Chronic HFpEF/Acute Hypoxic Respiratory Failure /Severe Aortic Stenosis
There is potentially conflicting documentation regarding the type of atrial fibrillation.
Documented per H&P and progress note 03/02, ,' Paroxysmal Atrial Fibrillation Stable. Rates < 100 bpm mostly. Continue metoprolol with holding parameters.Not on OAC - s/p Watchman device.'
Cardiology consult and progress note 03/03,' AFIB, persistent:metoprolol on hold for hypotension watchman is in place per records, so not on OAC...'
If possible, please provide further specificity regarding atrial fibrillation, such as:
Persistent atrial fibrillation - episodes of continuous AF that last more than 7 days and do not self-terminate
Paroxysmal atrial fibrillation - terminates spontaneously or with intervention within 7 days of onset ( no change in documentation)
Other - please specify
Use of terms such as suspected, likely, concern for, or probable (associated with a specific diagnosis that is being evaluated, monitored, or treated as if it exists) are acceptable and can be coded in the inpatient setting, when documented at the
time of discharge.
Thank you,
Kaye Iglesias RN
CDI Specialist
[place] [facility]
Please use your independent medical judgment in providing your response.
--- NOTE | 2025-03-07 12:47 | PN.CDI ---
CDI
- -
CDI:
Physician Documentation Request
Admit Date: 03/01/25 21:43
Dear Doctor ,
Please review the following and provide your response in the progress notes.
Clinical Indicators:
Pt admitted with Acte on Chronic HFpEF/Acute Hypoxic Respiratory Failure /Severe Aortic Stenosis
[facility] Breaker consult, ' - Patient at this point is unable to participate in these discussions in view of respiratory failure, shock and worsening acidosis with encephalopathy.'
Pt care note 03/02 @ 2,' Pt very anxious, tachypneic and shallow breathing. Desat to 70s/80s. Oxymask placed back on pt, 4L. Deep breathing exercises. 96-100%.... Pt occasionally disoriented to place/time....'
Pt care note 03/03 @0715,' Patient confused and pulling off oxygen. Pulse ox down to 76%. Tachypneic....'
Pt care note 03/03 @ 1030,' Around 0845, patient minimally responsive. Pale. Skin cool and clammy. Lung sounds crackles throughout left lung...'
Based on the above, could you clarify in the Progress Notes and Discharge Summary which, if any of the following, is the most likely etiology of the confusion/altered mental status/Type of Encephalopathy:
Metabolic Encephalopathy
Toxic metabolic Encephalopathy
Other ( please specify)
Use of terms such as suspected, likely, concern for, or probable (associated with a specific diagnosis that is being evaluated, monitored, or treated as if it exists) are acceptable and can be coded in the inpatient setting, when documented at the
time of discharge.
Thank you,
Kaye Iglesias RN
CDI Specialist
[place] [facility]
Please use your independent medical judgment in providing your response.
--- NOTE | 2025-03-08 16:42 | W.PN.UPDATE ---
Update Note
Progress Note Update
-Toxic Metabolic encephalopathy in the setting of metabolic acidosis with lactate >8.
== END 2025-03-03 11:46 | disposition expired | DRG 291 ==
LOC: ICU 21:43
PROVIDERS: Hospitalist; ADMITTING PHYSICIAN Hospitalist; ATTENDING PHYSICIAN General Practice; CONSULT PHYSICIAN Internal Medicine; EMERGENCY PHYSICIAN Emergency Medicine; FAMILY PHYSICIAN Family Medicine; OTHER PHYSICIAN Internal Medicine Cardiovascular Disease
DX: I13.0 Hypertensive heart and chronic kidney disease with heart failure and stage 1 through stage 4 chronic kidney disease, or unspecified chronic kidney disease (principal); I50.33 Acute on chronic diastolic (congestive) heart failure; J96.01 Acute respiratory failure with hypoxia; D61.818 Other pancytopenia; N17.9 Acute kidney failure, unspecified; E87.20 Acidosis, unspecified; I48.19 Other persistent atrial fibrillation; I5A Non-ischemic myocardial injury (non-traumatic); I35.0 Nonrheumatic aortic (valve) stenosis; I48.0 Paroxysmal atrial fibrillation; C50.919 Malignant neoplasm of unspecified site of unspecified female breast; N18.9 Chronic kidney disease, unspecified; E11.22 Type 2 diabetes mellitus with diabetic chronic kidney disease; E11.65 Type 2 diabetes mellitus with hyperglycemia; Z66 Do not resuscitate; R57.0 Cardiogenic shock; Z51.5 Encounter for palliative care
CPT/HCPCS: 71045; 80048; 80053; 82248; 82607; 82746; 82805; 82962; 83036; 83540; 83550; 83605; 83615; 83735; 83880; 84443; 84484; 85025; 85027; 85379; 85610; 85730; 86850; 86900; 86901; 92610; 93005; 94660; 96374; 99291